=== PATIENT | female | born 1970 | race Two or more races ===

== ENCOUNTER 2016-04-18 18:53 | Emergency (ER) | payer OTHER ==
[~2016-04-18] VITALS: Ht 152.4 cm; Wt 83.5 kg
[2016-04-18] MEDS ORDERED: ONDANSETRON 4 MG ORAL DISINTEGRATING TAB (S0181) As Ordered ONE (20:20)
[2016-04-18] MEDS ORDERED: NORCO, ANEXSIA 5/325MG TABLET (HYDROcodone/ACETAMINOPHEN) As Ordered ONE (20:20)
--- NOTE | 2016-04-18 21:10 | REPUSA ---
HISTORY: Trauma TECHNIQUE: -CT head: Axial CT was obtained at 5 mm slice thickness from the skull base to the vertex without the use of intravenous contrast. -CT C-spine: Contiguous noncontrast transaxial 2.[address] images were obtained through the cervical sp ine. Reconstructions were then created in the axial plane at 1.25 mm from which reformations were gen erated in the coronal and sagittal planes. COMPARISON: None FINDINGS: CT head: No acute intracranial hemorrhage or evidence of acute transcortical ischemia. No intra-axial or extra ction fluid collection, subfalcine herniation, midline shift, or hydrocephalus. The posterior fossa and brainstem are within normal limits. The osseous structures are intact. The pa ranasal sinuses, mastoid air cells, orbital compartments, and extra cranial soft tissues are unremark able. CT C-spine: No acute fracture, dislocation, or suspicious lesion. No evidence of significant arthritis and alignment is maintained without spondylolisthesis. There are no significant disc herniations or evidence of canal stenosis. The foramina, vertebral body, and dis c space heights are preserved. Odontoid process is intact. The neck soft tissues and airways are unremarkable with no hematoma or swelling. IMPRESSION: No acute intracranial or C-spine injury.
[2016-04-18] MEDS ORDERED: NORTRIPTYLINE 25 MG CAP PO ONE (22:45)
--- NOTE | 2016-04-18 22:56 | EDDOCDS ---
Physician Documentation [facility] Name: Stephani Bowman Age: 45 yrs Sex: Female : 1970 Arrival Date: 04/18/2016 Time: 18:53 Bed I6 Private MD: Other - Complete Info On Cds Disposition: 04/18/16 21:59 Discharged to Home/Self Care. Impression: Unspecified injury of head, Concussion, Cervicalgia. - Condition is Stable. - Discharge Instructions: Concussion, Adult, Head Injury, Adult, Soft Tissue Injury of the Neck. - Prescriptions for nortriptyline 25 mg Oral capsule - take 1 capsule by ORAL route at bedtime; 30 capsule. - Medication Reconciliation, Local Pharmacy Hours form. - Follow up: Nicolas Gutiérrez; When: 1 week; Reason: Recheck today's complaints, Continuance of care. - Problem is new. - Symptoms have improved. - Notes: PLEASE USE MEDICATION INSTRUCTED, FOLLOW UP WITH DR GUTIÉRREZ WITHIN THE NEXT WEEK, RETURN TO THE ER IF THE SYMPTOMS WORSEN OR BECOME CONCERNING Historical: - Allergies: Ciprofloxacin; salicylic acid; - Home Meds: 1. omeprazole 20 mg Oral cpDR 1 cap once daily - PMHx: GERD; - PSHx: ; Appendectomy; Cholecystectomy; - Social history: Smoking status: Patient uses tobacco products, light tobacco smoker. No barriers to communication noted, The patient speaks fluent Telugu, Speaks appropriately for age. - Family history: Not pertinent. - : The pt / caregiver states he / she is not on anticoagulants. Home medication list is obtained from the patient. - Exposure Risk Screening:: None identified. Vital Signs: 04/18 18:55 BP 144 / 68; Pulse 90; Resp 18 S; Temp 98.5(O); Pulse Ox 100% on R/A; Weight 83.46 kg / gr2 184 lbs (R); Height 5 ft. 0 in. (152.40 cm) (R); Pain 6/10; 21:38 BP 132 / 69; Pulse 70; Resp 18; Temp 97.8; Pulse Ox 98% ; Pain 0/10; ajs 22:42 BP 112 / 56; Pulse 87; Resp 17; Pulse Ox 99% ; mb9 18:55 Body Mass Index 35.93 (83.46 kg, 152.40 cm) gr2 MDM: 20:19 Apply Hilaria Collar to Patient. ordered. ck7 20:19 Ondansetron ODT Oral Disintegrating Tablet 4 mg PO once ordered. ck7 20:19 HYDROcodone-acetaminophen 5 mg-325 mg 1 tabs PO once ordered. ck7 20:20 CT Head Without Contrast Ordered. EDMS 20:20 CT Spine,Cervical W/o Contrast Ordered. EDMS 21:17 CT Head Without Contrast Reviewed. ck7 21:17 CT Spine,Cervical W/o Contrast Reviewed. ck7 22:16 Nortriptyline 25 mg PO once ordered. ck7 Administered Medications: 20:24 Drug: Ondansetron ODT 4 mg [ondansetron 4 mg disintegrating tablet (1 tabs)] Route: PO; ttb 20:24 Drug: HYDROcodone-acetaminophen 1 tabs [hydrocodone 5 mg-acetaminophen 325 mg tablet (1 ttb tabs)] Route: PO; 22:16 CANCELLED (Other Intervention Used): Amitriptyline 25 mg PO once ck7 22:54 Drug: Nortriptyline 25 mg Route: PO; mb9 Signatures: Dispatcher [employer] EDMS Jah Ibarra, MARY JANE-C RPA-Cck7 Rachana Epps RN RN ttb German MasonRN RN mb9 Tamanna AlexanderRN RN nn1 The chart was reviewed and I authenticate all verbal orders and agree with the evaluation and treatment provided.Corrections: (The following items were deleted from the chart) 22:16 21:59 Amitriptyline 25 mg PO once ordered. ck7 ck7 22:16 22:16 Amitriptyline 25 mg PO once ordered. ck7 ck7 MTDD
--- NOTE | 2016-04-18 22:56 | EDDOCDS ---
Nurse's Notes [facility] Name: Stephani Bowman Age: 45 yrs Sex: Female : 1970 Arrival Date: 04/18/2016 Time: 18:53 Bed I6 / 28 Private MD: Other - Complete Info On Cds Diagnosis: Unspecified injury of head;Concussion;Cervicalgia Presentation: 04/18 18:58 Presenting complaint: Patient states: Saturday she slipped on ice, fell and hit head. nn1 Patient denies dizziness or blurred vision at that time. States over the last 2-3 days she has been increasingly dizzy and has had headache unrelieved by OTC medications (ibuprofen and excedrin). States she was seen at [facility], they did not CT her at that time. Adult Sepsis Screening: The patient does not have new or worsening altered mentation. Patient's respiratory rate is less than 22. Systolic blood pressure is greater than 100. Patient has a qSOFA score of 0- Negative Sepsis Screen. Suicide/Homicide risk assessment- the patient denies having any suicidal and/or homicidal ideations and does not present with any other emotional, behavioral or mental health complaints. Status: The patient is a dependent. Transition of care: patient was not received from another setting of care. 18:58 Acuity: JESSICA Level 3 nn1 18:58 Method Of Arrival: Walkin/Carried/Asstd nn1 Triage Assessment: 19:02 General: Appears in no apparent distress, comfortable. Pain: Location: head Pain nn1 currently is 6 out of 10 on a pain scale. Quality of pain is described as pressure, Pain began 2-3 days ago Aggravated by repositioning. Pt Declines HIV testing. The patient is triaged at the bedside. See Assessment in Nurses Notes section of ED record. Neurological: Level of Consciousness is awake, alert, Oriented to person, place, time, Reports dizziness. Derm: Skin is pink, warm & dry. Musculoskeletal: No deficits noted. Circulation, motion, and sensation intact Capillary refill < 3 seconds Range of motion intact in all extremities. Patient reports some pain in upper neck due to fall. Historical: - Allergies: Ciprofloxacin; salicylic acid; - Home Meds: 1. omeprazole 20 mg Oral cpDR 1 cap once daily - PMHx: GERD; - PSHx: ; Appendectomy; Cholecystectomy; - Social history: Smoking status: Patient uses tobacco products, light tobacco smoker. No barriers to communication noted, The patient speaks fluent Luxembourgish, Speaks appropriately for age. - Family history: Not pertinent. - : The pt / caregiver states he / she is not on anticoagulants. Home medication list is obtained from the patient. - Exposure Risk Screening:: None identified. Screenin:04 Screening information is obtained from the patient. Fall risk: No risks identified. nn1 Assistance ADL's: requires no assistance with activities of daily living. Abuse/DV Screen: The patient / caregiver reports he/she is: not in a situation that causes fear, pain or injury. Nutritional screening: No deficits noted. Advance Directives: Currently, there is no health care proxy. home support is adequate. Assessment: 20:07 General: Appears in no apparent distress, well nourished, well groomed, Behavior is ttb appropriate for age, cooperative, pleasant. Pain: Location: "pressure headache" frontal. Neurological: Level of Consciousness is awake, alert, Oriented to person, place, time, Gait is steady, Speech is normal, Facial symmetry appears normal, Reports dizziness, headache. Respiratory: Airway is patent Respiratory effort is even, unlabored, Respiratory pattern is regular, symmetrical. GI: Denies nausea, vomiting. Derm: Skin is normal. Injury Description: pt fell from standing. Vital Signs: 18:55 BP 144 / 68; Pulse 90; Resp 18 S; Temp 98.5(O); Pulse Ox 100% on R/A; Weight 83.46 kg gr2 (R); Height 5 ft. 0 in. (152.40 cm) (R); Pain 6/10; 21:38 BP 132 / 69; Pulse 70; Resp 18; Temp 97.8; Pulse Ox 98% ; Pain 0/10; ajs 22:42 BP 112 / 56; Pulse 87; Resp 17; Pulse Ox 99% ; mb9 18:55 Body Mass Index 35.93 (83.46 kg, 152.40 cm) gr2 Vitals: 18:55 Log In Time: April 18, 2016 at 18:55. gr2 ED Course: 18:54 Patient visited by Anastasiia Bean. gr2 18:54 Other - Complete Info On Cds is Private Physician. gr2 18:54 Patient moved to Waiting gr2 18:56 Patient visited by Anastasiia Bean. gr2 18:57 Patient moved to Pre RCE gr2 19:00 Triage Initiated nn1 20:04 Patient moved to Triage 2 ttb 20:05 Jah Ibarra RPA-C is PHCP. ck7 20:06 Mireya Warner MD is Attending Physician. ck7 20:06 Patient visited by Jah Ibarra RPA-C. ck7 20:07 The patient / caregiver is instructed regarding the plan of care and ED course. ttb Accompanied by Significant Other, Patient has correct armband on for positive identification. 20:09 Patient visited by Rachana Epps RN. ttb 20:24 Patient moved to TR1 ttb 21:15 Patient visited by Jah Ibarra RPA-C. ck7 21:16 CT Head Without Contrast Returned. EDMS 21:16 CT Spine,Cervical W/o Contrast Returned. EDMS 21:31 Patient moved to PD2 / 27 nn1 21:33 Magy Sampson,EMILEE is Primary Nurse. ttb 21:33 Patient moved to I6 / 28 ttb 21:55 Patient visited by Jah Ibarra RPA-C. ck7 21:59 Nicolas Flores is Referral Physician. ck7 22:42 No IV's were initiated during this patient's visit. No procedures done that require mb9 assistance. Administered Medications: 20:24 Drug: Ondansetron ODT 4 mg [ondansetron 4 mg disintegrating tablet (1 tabs)] Route: PO; ttb 20:24 Drug: HYDROcodone-acetaminophen 1 tabs [hydrocodone 5 mg-acetaminophen 325 mg tablet (1 ttb tabs)] Route: PO; 22:16 CANCELLED (Other Intervention Used): Amitriptyline 25 mg PO once ck7 22:54 Drug: Nortriptyline 25 mg Route: PO; mb9 Order Results: Radiology Order: CT Head Without Contrast Test: CT Head Without Contrast REASON FOR EXAMINATION: HEAD INJURY, HEADACHE, R/O BLEED; ; HISTORY: Trauma; TECHNIQUE:; -CT head: Axial CT was obtained at 5 mm slice thickness from the skull base to the vertex without the; use of intravenous contrast.; -CT C-spine: Contiguous noncontrast transaxial 2.[address] images were obtained through the cervical sp; ine. Reconstructions were then created in the axial plane at 1.25 mm from which reformations were gen; erated in the coronal and sagittal planes.; COMPARISON: None; FINDINGS:; CT head:; No acute intracranial hemorrhage or evidence of acute transcortical ischemia. No intra-axial or extra; ction fluid collection, subfalcine herniation, midline shift, or hydrocephalus.; The posterior fossa and brainstem are within normal limits. The osseous structures are intact. The pa; ranasal sinuses, mastoid air cells, orbital compartments, and extra cranial soft tissues are unremark; able.; CT C-spine:; No acute fracture, dislocation, or suspicious lesion.; No evidence of significant arthritis and alignment is maintained without spondylolisthesis. There are; no significant disc herniations or evidence of canal stenosis. The foramina, vertebral body, and dis; c space heights are preserved. Odontoid process is intact.; The neck soft tissues and airways are unremarkable with no hematoma or swelling.; ; IMPRESSION:; No acute intracranial or C-spine injury.; ; Radiology Order: CT Spine,Cervical W/o Contrast Test: CT Spine,Cervical W/o Contrast REASON FOR EXAMINATION: NECK PAIN S/P FALL, R/O FX; ; HISTORY: Trauma; TECHNIQUE:; -CT head: Axial CT was obtained at 5 mm slice thickness from the skull base to the vertex without the; use of intravenous contrast.; -CT C-spine: Contiguous noncontrast transaxial 2.[address] images were obtained through the cervical sp; ine. Reconstructions were then created in the axial plane at 1.25 mm from which reformations were gen; erated in the coronal and sagittal planes.; COMPARISON: None; FINDINGS:; CT head:; No acute intracranial hemorrhage or evidence of acute transcortical ischemia. No intra-axial or extra; ction fluid collection, subfalcine herniation, midline shift, or hydrocephalus.; The posterior fossa and brainstem are within normal limits. The osseous structures are intact. The pa; ranasal sinuses, mastoid air cells, orbital compartments, and extra cranial soft tissues are unremark; able.; CT C-spine:; No acute fracture, dislocation, or suspicious lesion.; No evidence of significant arthritis and alignment is maintained without spondylolisthesis. There are; no significant disc herniations or evidence of canal stenosis. The foramina, vertebral body, and dis; c space heights are preserved. Odontoid process is intact.; The neck soft tissues and airways are unremarkable with no hematoma or swelling.; ; IMPRESSION:; No acute intracranial or C-spine injury.; ; Outcome: 21:59 Discharge ordered by Provider. ck7 22:42 Discharge Assessment: Patient awake, alert and oriented x 3. No cognitive and/or mb9 functional deficits noted. Patient verbalized understanding of disposition instructions. patient administered narcotics - no. The following High Risk Discharge criteria are identified: None. Discharged to home ambulatory, with significant other. Condition: good Condition: stable Condition: improved. Discharge instructions given to patient, Instructed on discharge instructions, follow up and referral plans. medication usage, Demonstrated understanding of instructions, medications, Pt was receptive of discharge instructions/ teaching. Prescriptions given X 1. CT Study completed. Property :Personal belongings accompany Pt. 22:55 Patient left the ED. mb9 Signatures: Dispatcher [employer] EDMS Tania Jamil Christopher, RPA-C RPA-Cck7 Rachana Epps, RN RN ttb Anastasiia Bean gr2 German Mason,RN RN mb9 Tamanna AlexanderRN RN nn1 MTDD
--- NOTE | 2016-04-20 23:55 | EDDOCDS ---
Physician Documentation [facility] Name: Stephani Bowman Age: 45 yrs Sex: Female : 1970 Arrival Date: 04/18/2016 Time: 18:53 Bed I6 Private MD: Other - Complete Info On Cds Disposition: 04/18/16 21:59 Discharged to Home/Self Care. Impression: Unspecified injury of head, Concussion, Cervicalgia. - Condition is Stable. - Discharge Instructions: Concussion, Adult, Head Injury, Adult, Soft Tissue Injury of the Neck. - Prescriptions for nortriptyline 25 mg Oral capsule - take 1 capsule by ORAL route at bedtime; 30 capsule. - Medication Reconciliation, Local Pharmacy Hours form. - Follow up: Nicolas Gutiérrez; When: 1 week; Reason: Recheck today's complaints, Continuance of care. - Problem is new. - Symptoms have improved. - Notes: PLEASE USE MEDICATION INSTRUCTED, FOLLOW UP WITH DR GUTIÉRREZ WITHIN THE NEXT WEEK, RETURN TO THE ER IF THE SYMPTOMS WORSEN OR BECOME CONCERNING Historical: - Allergies: Ciprofloxacin; salicylic acid; - Home Meds: 1. omeprazole 20 mg Oral cpDR 1 cap once daily - PMHx: GERD; - PSHx: ; Appendectomy; Cholecystectomy; - Social history: Smoking status: Patient uses tobacco products, light tobacco smoker. No barriers to communication noted, The patient speaks fluent Kazakh, Speaks appropriately for age. - Family history: Not pertinent. - : The pt / caregiver states he / she is not on anticoagulants. Home medication list is obtained from the patient. - Exposure Risk Screening:: None identified. Vital Signs: 04/18 18:55 BP 144 / 68; Pulse 90; Resp 18 S; Temp 98.5(O); Pulse Ox 100% on R/A; Weight 83.46 kg / gr2 184 lbs (R); Height 5 ft. 0 in. (152.40 cm) (R); Pain 6/10; 21:38 BP 132 / 69; Pulse 70; Resp 18; Temp 97.8; Pulse Ox 98% ; Pain 0/10; ajs 22:42 BP 112 / 56; Pulse 87; Resp 17; Pulse Ox 99% ; mb9 18:55 Body Mass Index 35.93 (83.46 kg, 152.40 cm) gr2 MDM: 20:19 Apply Hilaria Collar to Patient. ordered. ck7 20:19 Ondansetron ODT Oral Disintegrating Tablet 4 mg PO once ordered. ck7 20:19 HYDROcodone-acetaminophen 5 mg-325 mg 1 tabs PO once ordered. ck7 20:20 CT Head Without Contrast Ordered. EDMS 20:20 CT Spine,Cervical W/o Contrast Ordered. EDMS 21:17 CT Head Without Contrast Reviewed. ck7 21:17 CT Spine,Cervical W/o Contrast Reviewed. ck7 22:16 Nortriptyline 25 mg PO once ordered. ck7 23:01 [facility] Payment Agreement was scanned into [employer] and attached to record. [facility] : Financial registration complete. [facility] 04/19 11:49 T-Sheet-- Draft Copy was scanned into [employer] and attached to record. gb Administered Medications: 04/18 20:24 Drug: Ondansetron ODT 4 mg [ondansetron 4 mg disintegrating tablet (1 tabs)] Route: PO; ttb 20:24 Drug: HYDROcodone-acetaminophen 1 tabs [hydrocodone 5 mg-acetaminophen 325 mg tablet (1 ttb tabs)] Route: PO; 22:16 CANCELLED (Other Intervention Used): Amitriptyline 25 mg PO once ck7 22:54 Drug: Nortriptyline 25 mg Route: PO; mb9 Signatures: Dispatcher [employer] EDMS Rae Silverman, Reg Reg gb Jah Ibarra, RPA-C RPA-Cck7 Rachana Epps RN RN ttb German Mason RN RN mb9 Tamanna AlexanderRN RN nn1 Shira Fam fiona The chart was reviewed and I authenticate all verbal orders and agree with the evaluation and treatment provided.Corrections: (The following items were deleted from the chart) 22:16 21:59 Amitriptyline 25 mg PO once ordered. 7 22:16 22:16 Amitriptyline 25 mg PO once ordered. 7 Attachments: 23:01 [facility] Payment Agreement [facility] 04/19 11:49 T-Sheet-- Draft Copy gb Chart Complete MTDD
--- NOTE | 2016-04-20 23:56 | EDDOCDS ---
Nurse's Notes [facility] Name: Stephani Bowman Age: 45 yrs Sex: Female : 1970 Arrival Date: 04/18/2016 Time: 18:53 Bed I6 / 28 Private MD: Other - Complete Info On Cds Diagnosis: Unspecified injury of head;Concussion;Cervicalgia Presentation: 04/18 18:58 Presenting complaint: Patient states: Saturday she slipped on ice, fell and hit head. nn1 Patient denies dizziness or blurred vision at that time. States over the last 2-3 days she has been increasingly dizzy and has had headache unrelieved by OTC medications (ibuprofen and excedrin). States she was seen at [facility], they did not CT her at that time. Adult Sepsis Screening: The patient does not have new or worsening altered mentation. Patient's respiratory rate is less than 22. Systolic blood pressure is greater than 100. Patient has a qSOFA score of 0- Negative Sepsis Screen. Suicide/Homicide risk assessment- the patient denies having any suicidal and/or homicidal ideations and does not present with any other emotional, behavioral or mental health complaints. Status: The patient is a dependent. Transition of care: patient was not received from another setting of care. 18:58 Acuity: JESSICA Level 3 nn1 18:58 Method Of Arrival: Walkin/Carried/Asstd nn1 Triage Assessment: 19:02 General: Appears in no apparent distress, comfortable. Pain: Location: head Pain nn1 currently is 6 out of 10 on a pain scale. Quality of pain is described as pressure, Pain began 2-3 days ago Aggravated by repositioning. Pt Declines HIV testing. The patient is triaged at the bedside. See Assessment in Nurses Notes section of ED record. Neurological: Level of Consciousness is awake, alert, Oriented to person, place, time, Reports dizziness. Derm: Skin is pink, warm & dry. Musculoskeletal: No deficits noted. Circulation, motion, and sensation intact Capillary refill < 3 seconds Range of motion intact in all extremities. Patient reports some pain in upper neck due to fall. Historical: - Allergies: Ciprofloxacin; salicylic acid; - Home Meds: 1. omeprazole 20 mg Oral cpDR 1 cap once daily - PMHx: GERD; - PSHx: ; Appendectomy; Cholecystectomy; - Social history: Smoking status: Patient uses tobacco products, light tobacco smoker. No barriers to communication noted, The patient speaks fluent Czech, Speaks appropriately for age. - Family history: Not pertinent. - : The pt / caregiver states he / she is not on anticoagulants. Home medication list is obtained from the patient. - Exposure Risk Screening:: None identified. Screenin:04 Screening information is obtained from the patient. Fall risk: No risks identified. nn1 Assistance ADL's: requires no assistance with activities of daily living. Abuse/DV Screen: The patient / caregiver reports he/she is: not in a situation that causes fear, pain or injury. Nutritional screening: No deficits noted. Advance Directives: Currently, there is no health care proxy. home support is adequate. Assessment: 20:07 General: Appears in no apparent distress, well nourished, well groomed, Behavior is ttb appropriate for age, cooperative, pleasant. Pain: Location: "pressure headache" frontal. Neurological: Level of Consciousness is awake, alert, Oriented to person, place, time, Gait is steady, Speech is normal, Facial symmetry appears normal, Reports dizziness, headache. Respiratory: Airway is patent Respiratory effort is even, unlabored, Respiratory pattern is regular, symmetrical. GI: Denies nausea, vomiting. Derm: Skin is normal. Injury Description: pt fell from standing. Vital Signs: 18:55 BP 144 / 68; Pulse 90; Resp 18 S; Temp 98.5(O); Pulse Ox 100% on R/A; Weight 83.46 kg gr2 (R); Height 5 ft. 0 in. (152.40 cm) (R); Pain 6/10; 21:38 BP 132 / 69; Pulse 70; Resp 18; Temp 97.8; Pulse Ox 98% ; Pain 0/10; ajs 22:42 BP 112 / 56; Pulse 87; Resp 17; Pulse Ox 99% ; mb9 18:55 Body Mass Index 35.93 (83.46 kg, 152.40 cm) gr2 Vitals: 18:55 Log In Time: April 18, 2016 at 18:55. gr2 ED Course: 18:54 Patient visited by Anastasiia Bean. gr2 18:54 Other - Complete Info On Cds is Private Physician. gr2 18:54 Patient moved to Waiting gr2 18:56 Patient visited by Anastasiia Bean. gr2 18:57 Patient moved to Pre RCE gr2 19:00 Triage Initiated nn1 20:04 Patient moved to Triage 2 ttb 20:05 Jah Ibarra RPA-C is PHCP. ck7 20:06 Mireya Warner MD is Attending Physician. ck7 20:06 Patient visited by Jah Ibarra RPA-C. ck7 20:07 The patient / caregiver is instructed regarding the plan of care and ED course. ttb Accompanied by Significant Other, Patient has correct armband on for positive identification. 20:09 Patient visited by Rachana Epps RN. ttb 20:24 Patient moved to TR1 ttb 21:15 Patient visited by Jah Ibarra RPA-C. ck7 21:16 CT Head Without Contrast Returned. EDMS 21:16 CT Spine,Cervical W/o Contrast Returned. EDMS 21:31 Patient moved to PD2 / 27 nn1 21:33 Magy Sampson,EMILEE is Primary Nurse. ttb 21:33 Patient moved to I6 / 28 ttb 21:55 Patient visited by Jah Ibarra RPA-C. ck7 21:59 Nicolas Flores is Referral Physician. ck7 22:42 No IV's were initiated during this patient's visit. No procedures done that require mb9 assistance. 23:01 [facility] Payment Agreement was scanned into [employer] and attached to record. gjb 04/19 11:49 T-Sheet-- Draft Copy was scanned into [employer] and attached to record. gb Administered Medications: 04/18 20:24 Drug: Ondansetron ODT 4 mg [ondansetron 4 mg disintegrating tablet (1 tabs)] Route: PO; ttb 20:24 Drug: HYDROcodone-acetaminophen 1 tabs [hydrocodone 5 mg-acetaminophen 325 mg tablet (1 ttb tabs)] Route: PO; 22:16 CANCELLED (Other Intervention Used): Amitriptyline 25 mg PO once ck7 22:54 Drug: Nortriptyline 25 mg Route: PO; mb9 Order Results: Radiology Order: CT Head Without Contrast Test: CT Head Without Contrast REASON FOR EXAMINATION: HEAD INJURY, HEADACHE, R/O BLEED; ; HISTORY: Trauma; TECHNIQUE:; -CT head: Axial CT was obtained at 5 mm slice thickness from the skull base to the vertex without the; use of intravenous contrast.; -CT C-spine: Contiguous noncontrast transaxial 2.[address] images were obtained through the cervical sp; ine. Reconstructions were then created in the axial plane at 1.25 mm from which reformations were gen; erated in the coronal and sagittal planes.; COMPARISON: None; FINDINGS:; CT head:; No acute intracranial hemorrhage or evidence of acute transcortical ischemia. No intra-axial or extra; ction fluid collection, subfalcine herniation, midline shift, or hydrocephalus.; The posterior fossa and brainstem are within normal limits. The osseous structures are intact. The pa; ranasal sinuses, mastoid air cells, orbital compartments, and extra cranial soft tissues are unremark; able.; CT C-spine:; No acute fracture, dislocation, or suspicious lesion.; No evidence of significant arthritis and alignment is maintained without spondylolisthesis. There are; no significant disc herniations or evidence of canal stenosis. The foramina, vertebral body, and dis; c space heights are preserved. Odontoid process is intact.; The neck soft tissues and airways are unremarkable with no hematoma or swelling.; ; IMPRESSION:; No acute intracranial or C-spine injury.; ; Radiology Order: CT Spine,Cervical W/o Contrast Test: CT Spine,Cervical W/o Contrast REASON FOR EXAMINATION: NECK PAIN S/P FALL, R/O FX; ; HISTORY: Trauma; TECHNIQUE:; -CT head: Axial CT was obtained at 5 mm slice thickness from the skull base to the vertex without the; use of intravenous contrast.; -CT C-spine: Contiguous noncontrast transaxial 2.[address] images were obtained through the cervical sp; ine. Reconstructions were then created in the axial plane at 1.25 mm from which reformations were gen; erated in the coronal and sagittal planes.; COMPARISON: None; FINDINGS:; CT head:; No acute intracranial hemorrhage or evidence of acute transcortical ischemia. No intra-axial or extra; ction fluid collection, subfalcine herniation, midline shift, or hydrocephalus.; The posterior fossa and brainstem are within normal limits. The osseous structures are intact. The pa; ranasal sinuses, mastoid air cells, orbital compartments, and extra cranial soft tissues are unremark; able.; CT C-spine:; No acute fracture, dislocation, or suspicious lesion.; No evidence of significant arthritis and alignment is maintained without spondylolisthesis. There are; no significant disc herniations or evidence of canal stenosis. The foramina, vertebral body, and dis; c space heights are preserved. Odontoid process is intact.; The neck soft tissues and airways are unremarkable with no hematoma or swelling.; ; IMPRESSION:; No acute intracranial or C-spine injury.; ; Outcome: 21:59 Discharge ordered by Provider. ck7 22:42 Discharge Assessment: Patient awake, alert and oriented x 3. No cognitive and/or mb9 functional deficits noted. Patient verbalized understanding of disposition instructions. patient administered narcotics - no. The following High Risk Discharge criteria are identified: None. Discharged to home ambulatory, with significant other. Condition: good Condition: stable Condition: improved. Discharge instructions given to patient, Instructed on discharge instructions, follow up and referral plans. medication usage, Demonstrated understanding of instructions, medications, Pt was receptive of discharge instructions/ teaching. Prescriptions given X 1. CT Study completed. Property :Personal belongings accompany Pt. 22:55 Patient left the ED. mb9 Signatures: Dispatcher [employer] EDMS Rae Silverman, Suhail Jamil, Jah Ascencio, RPA-C [id number] Rachana Epps RN RN ttb Anastasiia Bean gr2 German MasonRN RN mb9 Tamanna AlexanderRN RN nn1 Shira Fam Chart Complete MTDD
--- NOTE | 2016-04-20 23:56 | EDDOCDS ---
Physician Documentation [facility] Name: Stephani Bowman Age: 45 yrs Sex: Female : 1970 Arrival Date: 04/18/2016 Time: 18:53 Bed I6 Private MD: Other - Complete Info On Cds Disposition: 04/18/16 21:59 Discharged to Home/Self Care. Impression: Unspecified injury of head, Concussion, Cervicalgia. - Condition is Stable. - Discharge Instructions: Concussion, Adult, Head Injury, Adult, Soft Tissue Injury of the Neck. - Prescriptions for nortriptyline 25 mg Oral capsule - take 1 capsule by ORAL route at bedtime; 30 capsule. - Medication Reconciliation, Local Pharmacy Hours form. - Follow up: Nicolas Gutiérrez; When: 1 week; Reason: Recheck today's complaints, Continuance of care. - Problem is new. - Symptoms have improved. - Notes: PLEASE USE MEDICATION INSTRUCTED, FOLLOW UP WITH DR GUTIÉRREZ WITHIN THE NEXT WEEK, RETURN TO THE ER IF THE SYMPTOMS WORSEN OR BECOME CONCERNING Historical: - Allergies: Ciprofloxacin; salicylic acid; - Home Meds: 1. omeprazole 20 mg Oral cpDR 1 cap once daily - PMHx: GERD; - PSHx: ; Appendectomy; Cholecystectomy; - Social history: Smoking status: Patient uses tobacco products, light tobacco smoker. No barriers to communication noted, The patient speaks fluent Korean, Speaks appropriately for age. - Family history: Not pertinent. - : The pt / caregiver states he / she is not on anticoagulants. Home medication list is obtained from the patient. - Exposure Risk Screening:: None identified. Vital Signs: 04/18 18:55 BP 144 / 68; Pulse 90; Resp 18 S; Temp 98.5(O); Pulse Ox 100% on R/A; Weight 83.46 kg / gr2 184 lbs (R); Height 5 ft. 0 in. (152.40 cm) (R); Pain 6/10; 21:38 BP 132 / 69; Pulse 70; Resp 18; Temp 97.8; Pulse Ox 98% ; Pain 0/10; ajs 22:42 BP 112 / 56; Pulse 87; Resp 17; Pulse Ox 99% ; mb9 18:55 Body Mass Index 35.93 (83.46 kg, 152.40 cm) gr2 MDM: 20:19 Apply Hilaria Collar to Patient. ordered. ck7 20:19 Ondansetron ODT Oral Disintegrating Tablet 4 mg PO once ordered. ck7 20:19 HYDROcodone-acetaminophen 5 mg-325 mg 1 tabs PO once ordered. ck7 20:20 CT Head Without Contrast Ordered. EDMS 20:20 CT Spine,Cervical W/o Contrast Ordered. EDMS 21:17 CT Head Without Contrast Reviewed. ck7 21:17 CT Spine,Cervical W/o Contrast Reviewed. ck7 22:16 Nortriptyline 25 mg PO once ordered. ck7 23:01 [facility] Payment Agreement was scanned into [employer] and attached to record. [facility] : Financial registration complete. [facility] 04/19 11:49 T-Sheet-- Draft Copy was scanned into [employer] and attached to record. gb Administered Medications: 04/18 20:24 Drug: Ondansetron ODT 4 mg [ondansetron 4 mg disintegrating tablet (1 tabs)] Route: PO; ttb 20:24 Drug: HYDROcodone-acetaminophen 1 tabs [hydrocodone 5 mg-acetaminophen 325 mg tablet (1 ttb tabs)] Route: PO; 22:16 CANCELLED (Other Intervention Used): Amitriptyline 25 mg PO once ck7 22:54 Drug: Nortriptyline 25 mg Route: PO; mb9 Signatures: Dispatcher [employer] EDMS Rae Silverman, Reg Reg gb Jah Ibarra, RPA-C RPA-Cck7 Rachana Epsp RN RN ttb German Mason RN RN mb9 Tamanna AlexanderRN RN nn1 Shira Fam fiona The chart was reviewed and I authenticate all verbal orders and agree with the evaluation and treatment provided.Corrections: (The following items were deleted from the chart) 22:16 21:59 Amitriptyline 25 mg PO once ordered. 7 22:16 22:16 Amitriptyline 25 mg PO once ordered. 7 Attachments: 23:01 [facility] Payment Agreement [facility] 04/19 11:49 T-Sheet-- Draft Copy gb Chart Complete MTDD
== END 2016-04-18 22:55 | disposition home or self-care (01) ==
LOC: M ED 18:53
DX: S09.90XA Unspecified injury of head, initial encounter (principal); W00.0XXA Fall on same level due to ice and snow, initial encounter; Y92.018 Other place in single-family (private) house as the place of occurrence of the external cause; Y93.89 Activity, other specified; Y99.8 Other external cause status; M54.2 Cervicalgia; K21.9 Gastro-esophageal reflux disease without esophagitis; Z79.899 Other long term (current) drug therapy; Z88.1 Allergy status to other antibiotic agents; Z88.8 Allergy status to other drugs, medicaments and biological substances; F17.210 Nicotine dependence, cigarettes, uncomplicated